=== PATIENT | female | born 1995 | race Caucasian/White ===

== ENCOUNTER 2021-11-08 00:02 | Outpatient (CLI) | payer OTHER ==
[~2021-11-08 00:02] MED LIST: AUGMENTIN 875-1 EACH PO; COLACE100 MG PO; HYDROCODON-ACE1 EAC4 PO; IBUPROFEN600 MG PO; NORCO 5-325 TA1 EACH PO; PRENATAL VITAM1 EAC3 PO; TYLENOL 500 MG500 MG PO; ZANTAC150 MG PO
== END 2021-11-08 00:58 | disposition home or self-care (01) ==
LOC: GENOP 00:02
DX: O47.1 False labor at or after 37 completed weeks of gestation (principal); O34.211 Maternal care for low transverse scar from previous cesarean delivery; O24.410 Gestational diabetes mellitus in pregnancy, diet controlled; Z3A.37 37 weeks gestation of pregnancy; O23.43 Unspecified infection of urinary tract in pregnancy, third trimester; O99.353 Diseases of the nervous system complicating pregnancy, third trimester; O99.513 Diseases of the respiratory system complicating pregnancy, third trimester; O99.013 Anemia complicating pregnancy, third trimester; D64.9 Anemia, unspecified; N39.0 Urinary tract infection, site not specified; G43.909 Migraine, unspecified, not intractable, without status migrainosus; J45.909 Unspecified asthma, uncomplicated
CPT/HCPCS: 81001; G0463

== ENCOUNTER 2021-11-13 11:13 | Outpatient (CLI) | payer OTHER ==
[2021-11-13 12:01] LABS: HEMOGLOBIN 10.9 gm/dl (12.3-15.3); RED BLOOD COUNT 4.49 M/UL (4.00-5.10); WHITE BLOOD COUNT 6.4 K/UL (4.5-11.0)
[2021-11-13 12:20] LABS: BUN/CREATININE RATIO 15 (0-10)
[2021-11-14] MEDS ORDERED: HYDROCODON-ACE1 EAC4 PO (08:48)
[2021-11-14] MEDS ORDERED: DOCUSATE SODIU100 MG PO (08:48)
== END 2021-11-13 12:18 | disposition home or self-care (01) ==
LOC: GENOP 11:13
PROVIDERS: Obstetrics & Gynecology
DX: Z01.812 Encounter for preprocedural laboratory examination (principal)
CPT/HCPCS: 36415; 80053; 81001; 85025

== ENCOUNTER 2021-11-14 05:28 | Inpatient (IN) | payer OTHER ==
[2021-11-14] MEDS ORDERED: DOCUSATE SODIU100 MG PO (08:48)
[2021-11-14] MEDS ORDERED: HYDROCODON-ACE1 EAC4 PO (08:48)
[2021-11-15 05:13] LABS: HEMOGLOBIN 8.2 gm/dl (12.3-15.3)
[2021-11-16] MEDS ORDERED: HYDROCODON-ACE1 EAC2 PO (13:33)
[2021-11-16] MEDS ORDERED: GABAPENTIN300 MG PO (13:33)
[2021-11-16] MEDS ORDERED: DOCUSATE SODIU100 MG PO (13:33)
== END 2021-11-16 15:50 | disposition home or self-care (01) | DRG 787 ==
LOC: OB 05:28
PROVIDERS: ADMIT Obstetrics & Gynecology
PROC: 4A1HXCZ Monitoring of Products of Conception, Cardiac Rate, External Approach (ICD-10-PCS; 2021-11-14)
PROC: 3E0234Z Introduction of Serum, Toxoid and Vaccine into Muscle, Percutaneous Approach (ICD-10-PCS; 2021-11-14)
PROC: 10D00Z1 Extraction of Products of Conception, Low, Open Approach (ICD-10-PCS; principal; 2021-11-14 09:12)
DX: O34.211 Maternal care for low transverse scar from previous cesarean delivery (principal); D62 Acute posthemorrhagic anemia; O24.420 Gestational diabetes mellitus in childbirth, diet controlled; Z3A.38 38 weeks gestation of pregnancy; Z20.822 Contact with and (suspected) exposure to COVID-19; Z37.0 Single live birth; Z90.49 Acquired absence of other specified parts of digestive tract; O99.02 Anemia complicating childbirth; O62.2 Other uterine inertia; Z88.6 Allergy status to analgesic agent; Z88.0 Allergy status to penicillin; Z88.8 Allergy status to other drugs, medicaments and biological substances; Z87.440 Personal history of urinary (tract) infections; Z83.3 Family history of diabetes mellitus; Z82.49 Family history of ischemic heart disease and other diseases of the circulatory system; Z80.3 Family history of malignant neoplasm of breast; Z80.2 Family history of malignant neoplasm of other respiratory and intrathoracic organs; Z87.891 Personal history of nicotine dependence; Z23 Encounter for immunization
CPT/HCPCS: 36415; 82800; 82962; 85014; 85018; 90715; C9113; J0690; J1170; J1200; J2210; J2270; J2274; J2370; J2405; J2550; J2590; J3010; J7030; J7120

== ENCOUNTER 2022-07-20 23:49 | Emergency (ER) | payer OTHER ==
[~2022-07-20 23:49] MED LIST changes: +DOCUSATE SODIU100 MG PO; +GABAPENTIN300 MG PO; +HYDROCODON-ACE1 EAC2 PO
== END 2022-07-21 01:23 | disposition home or self-care (01) ==
LOC: ER1 23:49
DX: S61.210A Laceration without foreign body of right index finger without damage to nail, initial encounter (principal); J45.909 Unspecified asthma, uncomplicated; Z88.0 Allergy status to penicillin; Z88.6 Allergy status to analgesic agent; Z23 Encounter for immunization; Z88.8 Allergy status to other drugs, medicaments and biological substances; W25.XXXA Contact with sharp glass, initial encounter
CPT/HCPCS: 73130; 90471; 90715; 99283